=== PATIENT | female | born 1995 | race Caucasian/White ===

== ENCOUNTER → 2019-05-12 | Outpatient (CLI) | payer OTHER ==
[2019-05-12 15:19] LABS: BASOPHILS # (AUTO) 0.04 x10^3/uL (0-0.1); BASOPHILS % (AUTO) 0 % (0-1); EOSINOPHILS # (AUTO) 0.09 x10^3/uL (0-0.4); EOSINOPHILS % (AUTO) 1 % (1-7); LYMPHOCYTES # (AUTO) 1.59 x10^3/uL (1-3.4); LYMPHOCYTES % (AUTO) 17 % (22-44); MD NO; MEAN CORPUSCULAR HEMOGLOBIN 26.2 pg (27.0-34.8); MEAN CORPUSCULAR HGB CONC 32.4 g/dL (32.4-35.8); MONOCYTES # (AUTO) 0.67 x10^3/uL (0.2-0.8); MONOCYTES % (AUTO) 7 % (2-9); NEUTROPHILS # (AUTO) 6.78 x10^3/uL (1.8-6.8); NEUTROPHILS % (AUTO) 74 % (42-75); PLATELET COUNT 261 x10^3/uL (130-400); RED BLOOD COUNT 4.54 x10^6/uL (3.82-5.3); RED CELL DISTRIBUTION WIDTH 17.3 % (9.6-15.2)
== END | disposition home or self-care (01) ==
LOC: LAB 14:27
PROVIDERS: ATTEND Obstetrics & Gynecology
DX: Z34.01 Encounter for supervision of normal first pregnancy, first trimester (principal); Z3A.00 Weeks of gestation of pregnancy not specified
CPT/HCPCS: 36415; 85025; 86592; 86762; 86787; 86850; 86870; 86900; 86902; 87086; 87340; 87389

== ENCOUNTER 2019-10-24 18:21 | Emergency (ER) | payer OTHER ==
[~2019-10-24] VITALS: Ht 162.6 cm; Wt 58.1 kg
[2019-10-24 18:22] VITALS: BP 128/78
[2019-10-24] MEDS ORDERED: PREN1TAB60 PO (19:11)
[2019-10-24] MEDS ORDERED: CHOL10003 PO (19:11)
[2019-10-24] MEDS ORDERED: FERR324T5 PO (19:11)
[2019-10-24] MEDS ORDERED: FLUO10CA13 PO (19:11)
== END 2019-10-24 18:59 | disposition left against medical advice (07) ==
LOC: ED 18:45
DX: M54.9 Dorsalgia, unspecified (principal); Z53.21 Procedure and treatment not carried out due to patient leaving prior to being seen by health care provider

== ENCOUNTER 2019-10-24 18:40 | Outpatient (CLI) | payer OTHER ==
[~2019-10-24] VITALS: Ht 162.6 cm; Wt 58.6 kg
[2019-10-24 19:04] VITALS: BP 119/71
[2019-10-24] MEDS ORDERED: FLUO10CA13 PO (19:11)
[2019-10-24] MEDS ORDERED: PREN1TAB60 PO (19:11)
[2019-10-24] MEDS ORDERED: CHOL10003 PO (19:11)
[2019-10-24] MEDS ORDERED: FERR324T5 PO (19:11)
[2019-10-24 19:24] LABS: CULTURE INDICATED? YES; MICROSCOPIC INDICATED
[2019-10-24] MEDS ORDERED: TERBUTALINE 1 MG/ML, 1ML ONE (20:27)
[2019-10-24] MEDS ORDERED: TERBUTALINE 1 MG/ML, 1ML SQ ONE (20:30)
== END 2019-10-24 21:48 | disposition home or self-care (01) ==
LOC: LDOP 18:40
PROVIDERS: ATTEND Obstetrics & Gynecology
DX: O9A.213 Injury, poisoning and certain other consequences of external causes complicating pregnancy, third trimester (principal); S60.812A Abrasion of left wrist, initial encounter; S60.811A Abrasion of right wrist, initial encounter; S80.212A Abrasion, left knee, initial encounter; S80.211A Abrasion, right knee, initial encounter; O26.893 Other specified pregnancy related conditions, third trimester; R10.9 Unspecified abdominal pain; Z3A.33 33 weeks gestation of pregnancy; W18.31XA Fall on same level due to stepping on an object, initial encounter; Z91.81 History of falling; Y93.89 Activity, other specified; Y92.89 Other specified places as the place of occurrence of the external cause
CPT/HCPCS: 59025; 81001; 87086; 96372; 99211; J3105; G0463

== ENCOUNTER 2019-12-04 05:10 | Inpatient (IN) | payer OTHER ==
[~2019-12-04] VITALS: Ht 162.6 cm; Wt 60.0 kg
[~2019-12-04 05:10] MED LIST: CHOL10003 PO; FERR324T5 PO; FLUO10CA13 PO; PREN1TAB60 PO
[2019-12-04] MEDS ORDERED: OXYTOCIN 30U/ 0.9% NaCL 500ML 500 ML IV PRN (05:38)
[2019-12-04] MEDS ORDERED: OXYTOCIN 30U/ 0.9% NaCL 500ML 500 ML IV ONE (05:38)
[2019-12-04] MEDS ORDERED: D5%-LACTATED RINGERS 1,000 ML IV SCH (05:38)
[2019-12-04] MEDS: LACTATED RINGERS 1,000 ML IV SCH ×2 (05:38→11:21)
[2019-12-04] MEDS ORDERED: NEWBORN KIT ONE (05:57)
[2019-12-04] MEDS ORDERED: ONDANSETRON 2MG/ML, 2ML IVPush PRN ×2 (06:00→13:30)
[2019-12-04] MEDS ORDERED: TERBUTALINE 1 MG/ML, 1ML SQ PRN (06:00)
[2019-12-04] MEDS ORDERED: CALCIUM CARBONATE 500 MG TAB.CHEW PO PRN (06:00)
[2019-12-04] MEDS ORDERED: TERBUTALINE 1 MG/ML, 1ML IVPush PRN (06:00)
[2019-12-04] MEDS ORDERED: FENTANYL PF 100 MCG/2ML IVPush PRN (06:00)
[2019-12-04] MEDS ORDERED: OXYTOCIN 30U/ 0.9% NaCL 500ML 500 ML ONE ×2 (06:07→18:00)
[2019-12-04] MEDS ORDERED: LIDOCAINE 1%, 20ML ONE (06:07)
[2019-12-04] MEDS ORDERED: MISOPROSTOL 200 MCG TABLET ONE (06:08)
[2019-12-04 06:27] LABS: BASOPHILS # (AUTO) 0.03 x10^3/uL (0-0.1); BASOPHILS % (AUTO) 0 % (0-1); EOSINOPHILS # (AUTO) 0.09 x10^3/uL (0-0.4); EOSINOPHILS % (AUTO) 1 % (1-7); LYMPHOCYTES # (AUTO) 2.05 x10^3/uL (1-3.4); LYMPHOCYTES % (AUTO) 28 % (22-44); MD NO; MEAN CORPUSCULAR HEMOGLOBIN 24.3 pg (27.0-34.8); MEAN CORPUSCULAR HGB CONC 32.1 g/dL (32.4-35.8); MEAN CORPUSCULAR VOLUME 75.6 fL (80-100); MEAN PLATELET VOLUME 8.3 fL (7.4-10.4); MONOCYTES # (AUTO) 0.63 x10^3/uL (0.2-0.8); MONOCYTES % (AUTO) 9 % (2-9); NEUTROPHILS # (AUTO) 4.51 x10^3/uL (1.8-6.8); NEUTROPHILS % (AUTO) 62 % (42-75); PLATELET COUNT 241 x10^3/uL (130-400); RED CELL DISTRIBUTION WIDTH 16.2 % (9.6-15.2)
[2019-12-04 07:06] VITALS: BP 123/68
[2019-12-04] MEDS ORDERED: FENTANYL PF 100 MCG/2ML ONE (11:17)
[2019-12-04] MEDS: FENTANYL PF 100 MCG/2ML IV PRN ×2 (11:19→11:30)
[2019-12-04] MEDS ORDERED: BUPIVACAINE 0.25% ONE (12:53)
[2019-12-04] MEDS ORDERED: LACTATED RINGERS 1,000 ML IV SCH (13:11)
[2019-12-04] MEDS ORDERED: FENTANYL/BUPIV./NS/PF 250 ML EPIDCONT SCH (13:11)
[2019-12-04] MEDS ORDERED: LACTATED RINGERS 1,000 ML IVBOLUS PRN (13:30)
[2019-12-04] MEDS ORDERED: NALOXONE 0.4 MG/ML, 1ML IVPush PRN (13:30)
[2019-12-04] MEDS ORDERED: DIPHENHYDRAMINE 50 MG/ML, 1ML IVPush PRN (13:30)
[2019-12-04] MEDS ORDERED: EPHEDRINE 50 MG/ML, 1ML IVPush PRN (13:30)
[2019-12-04] MEDS ORDERED: ACETAMINOPHEN 325 MG TABLET PO PRN (16:30)
[2019-12-04] MEDS ORDERED: MISOPROSTOL 200 MCG TABLET PR PRN (16:30)
[2019-12-04] MEDS ORDERED: HYDROcodone/APAP 5/325 TABLET PO PRN (16:30)
[2019-12-04] MEDS ORDERED: OXYcodone/APAP 5/325MG TABLET PO PRN (16:30)
[2019-12-04] MEDS ORDERED: ONDANSETRON 2MG/ML, 2ML IV PRN (16:30)
[2019-12-04] MEDS ORDERED: RHOGAM FROM BLOOD BANK 1 NOTE EA IM/IV ONE (16:30)
[2019-12-04] MEDS ORDERED: IBUPROFEN 800 MG TABLET PO PRN (16:30)
[2019-12-04] MEDS ORDERED: DOCUSATE 100 MG CAPSULE PO PRN (16:30)
[2019-12-04] MEDS ORDERED: BISACODYL 10 MG SUPP PR PRN (16:30)
[2019-12-04] MEDS: OXYTOCIN 30U/ 0.9% NaCL 500ML 500 ML IV SCH (18:02)
[2019-12-04] MEDS ORDERED: IBUPROFEN 600 MG TABLET ONE (19:00)
[2019-12-04] MEDS ORDERED: IBUPROFEN 600 MG TABLET PO ONE (19:20)
[2019-12-04 19:44] VITALS: BP 109/67
[2019-12-05] VITALS: BP 105/66
[2019-12-05 01:05] LABS: MEAN CORPUSCULAR HEMOGLOBIN 24.1 pg (27.0-34.8); MEAN CORPUSCULAR HGB CONC 32.3 g/dL (32.4-35.8); MEAN CORPUSCULAR VOLUME 74.6 fL (80-100); PLATELET COUNT 212 x10^3/uL (130-400); RED BLOOD COUNT 3.45 x10^6/uL (3.82-5.3); RED CELL DISTRIBUTION WIDTH 15.9 % (9.6-15.2)
[2019-12-05 01:22] LABS: BASOPHILS # (AUTO) 0.09 x10^3/uL (0-0.1); BASOPHILS % (AUTO) 1 % (0-1); EOSINOPHILS % (AUTO) 0 % (1-7); LYMPHOCYTES # (AUTO) 1.71 x10^3/uL (1-3.4); LYMPHOCYTES % (AUTO) 12 % (22-44); MD SCAN; MONOCYTES # (AUTO) 0.81 x10^3/uL (0.2-0.8); MONOCYTES % (AUTO) 6 % (2-9); NEUTROPHILS # (AUTO) 11.59 x10^3/uL (1.8-6.8); NEUTROPHILS % (AUTO) 82 % (42-75)
[2019-12-05] MEDS: OXYTOCIN 30U/ 0.9% NaCL 500ML 500 ML IV SCH (02:13)
[2019-12-05 04:22] VITALS: BP 96/60
[2019-12-05] MEDS ORDERED: OXYTOCIN 30U/ 0.9% NaCL 500ML 500 ML IV PRN (05:38)
[2019-12-05] MEDS ORDERED: FERROUS SULFATE 325 MG TABLET PO SCH (08:00)
[2019-12-05 09:00] VITALS: BP 100/65
[2019-12-05] MEDS ORDERED: PRENATAL VIT/IRON/FA 1 EACH TABLET PO SCH (09:00)
[2019-12-05] MEDS ORDERED: FLUOXETINE HCL 20 MG/5 ML ORAL.SOL HOMEMEDPO SCH (09:00)
[2019-12-05] MEDS ORDERED: FLUOXETINE HCL 20 MG/5 ML ORAL.SOL PO SCH (09:00)
[2019-12-05 12:00] VITALS: BP 112/75
[2019-12-05 16:00] VITALS: BP 110/70
== END 2019-12-05 18:40 | disposition home or self-care (01) | DRG 807 ==
LOC: LDIP 05:10 → 2NW 19:45
PROVIDERS: ADMIT Obstetrics & Gynecology; ATTEND Obstetrics & Gynecology
PROC: 10E0XZZ Delivery of Products of Conception, External Approach (ICD-10-PCS; principal; 2019-12-04)
PROC: 10907ZC Drainage of Amniotic Fluid, Therapeutic from Products of Conception, Via Natural or Artificial Opening (ICD-10-PCS; 2019-12-04)
PROC: 0HQ9XZZ Repair Perineum Skin, External Approach (ICD-10-PCS; 2019-12-04)
PROC: 3E0R3BZ Introduction of Anesthetic Agent into Spinal Canal, Percutaneous Approach (ICD-10-PCS; 2019-12-04)
PROC: 00HU33Z Insertion of Infusion Device into Spinal Canal, Percutaneous Approach (ICD-10-PCS; 2019-12-04)
PROC: 3E033VJ Introduction of Other Hormone into Peripheral Vein, Percutaneous Approach (ICD-10-PCS; 2019-12-04)
DX: O36.5930 Maternal care for other known or suspected poor fetal growth, third trimester, not applicable or unspecified (principal); Z37.0 Single live birth; O99.02 Anemia complicating childbirth; D50.9 Iron deficiency anemia, unspecified; O99.344 Other mental disorders complicating childbirth; F32.9 Major depressive disorder, single episode, unspecified; O70.0 First degree perineal laceration during delivery; Z88.2 Allergy status to sulfonamides; Z20.828 Contact with and (suspected) exposure to other viral communicable diseases; Z3A.39 39 weeks gestation of pregnancy
CPT/HCPCS: 36415; 85025; 86592; 86850; 86870; 86900; 86922; 86923; G0378; J3010; J2590; J7120; U0001-CS